=== PATIENT | female | born 1960 | race Caucasian/White ===

== ENCOUNTER 2016-10-24 08:45 | Inpatient (IN) ==
[2016-10-24] MEDS ORDERED: Lidocaine -MPF 1% 2 ML VIAL ID ONE (09:09)
[2016-10-24] MEDS ORDERED: CeFAZolin Pre 2,000 MG/100 ML 2,000 MG/100 ML BAG IVPB ONE (09:09)
[2016-10-24] MEDS ORDERED: Albuterol 2.5 MG/3 ML NEBULIZER IH ONE (09:10)
[2016-10-24] MEDS ORDERED: Plasma-Lyte A (PH 7.4) 1,000 ML IVC SCH (09:15)
--- NOTE | 2016-10-24 09:47 | Anesthesia Evaluation PreOp ---
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 Any Significant HX Other Medical History: Diabetes Type II, GERD Anesthesia History: Past Anesthesia (DANIELLE, Bladder repair, RCR< ganglion cyst) : No Alcohol Use: none Drug use: none Medications and Allergies Lisinopril/Hydrochlorothiazide [Zestoretic 10-12.5 mg Tablet] 1 each PO DAILY [History] Oxycodone HCl/Acetaminophen [Percocet 5-325 mg Tablet] 1 each PO Q4-6H PRN 01/16 [History] Allergies codeine Allergy (Verified 10/23/16 09:45) Hives promethazine [From Phenergan] Allergy (Verified 10/23/16 09:45) Hives - Meds/Allergy Pre-op Review Medications Reviewed: Yes Allergies Reviewed: Yes Beta Blockers on Current Med List: No Anesthesia Results - Labs Laboratory Tests 10/23/16 10/23/16 10/23/16 09:56 09:56 09:56 WBC 7.0 Hgb 15.8 H Hct 46.4 H Plt Count 217 INR 1.0 Sodium 137 Potassium 3.8 Chloride 102 Carbon Dioxide 26 BUN 15 Creatinine 0.73 Anesthesia Exam O2 Sat Height 1.55 m Height 1.55 m Weight 83.915 kg Weight 83.915 kg O2 Sat by Pulse Oximetry 95 Vital Signs Temp Pulse Resp BP Pulse Ox 97.5 F L 69 18 134/75 95 10/24/16 09:14 10/24/16 09:14 10/24/16 09:14 10/24/16 09:14 10/24/16 09:14 - HEENT Pupil (Motor): Pupils equal, EOMI Mallampati: III Teeth: Normal Oral Opening: Greater than 3 - 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
[2016-10-24] MEDS ORDERED: Acetaminophen IV 1,000 MG/100 ML INFUS..BTL IVPB ONE (11:05)
[2016-10-24] MEDS ORDERED: Acetaminophen IV 1,000 MG/100 ML INFUS..BTL ONE (11:06)
--- NOTE | 2016-10-24 13:00 | History & Physical Report ---
Date of Encounter: 10/24/16 Time of Encounter: 12:58 24 Hour HP Update - Instructions Instructions: If the History and Physical is less than 30 days old and was completed prior to A.M. admission and or procedure and has NOT been updated on calendar day of procedure please complete this update prior to performing procedure. - Update Patient reports changes in Medical Condition: No Changes in examination, assessment, or condition: No Changes in Medication: No Preop tests/diagnostics Reviewed: Yes Pre-Op MRSA Screen: Negative Surgery Remains Indicated: Yes Consent for Planned Operative Procedure(s) Verified: Yes - Pre-Operative Checklist Preoperative Checklist Indicated: No Prophylactic Antibiotic Ordered: Yes Home Medications Include Beta Alex: No Beta Alex Taken Today (Day of Surgery): No Beta Alex Taken Yesterday (Day Prior to Surgery): No Is VTE Prophylaxis Indicated?: Yes
[2016-10-24] MEDS ORDERED: *HR* FentaNYL (PF) 100 MCG/2 ML VIAL ONE (14:50)
[2016-10-24] MEDS ORDERED: *HR* Midazolam HCl 2 MG/2 ML VIAL ONE (14:50)
[2016-10-24] MEDS ORDERED: Lidocaine -MPF 2% 2 ML VIAL ONE (14:50)
[2016-10-24] MEDS ORDERED: *HR* Remifentanil 1 MG VIAL IVP ONE (14:50)
[2016-10-24] MEDS ORDERED: *HR* Phenylephrine 10 MG/ML VIAL ONE (14:50)
[2016-10-24] MEDS ORDERED: Propofol 500 MG/50 ML INFUS..BTL ONE ×2 (14:50→16:59)
[2016-10-24] MEDS ORDERED: *HR* Propofol 200 MG/20 ML VIAL IVP ONE (14:50)
[2016-10-24] MEDS ORDERED: *HR* Labetalol 20 MG/4 ML SYRINGE IVP PRN (15:24)
[2016-10-24] MEDS ORDERED: Ondansetron 4 MG/2 ML VIAL IVP PRN ×2 (15:24→17:46)
--- NOTE | 2016-10-24 16:26 | Orthopedic Operative Note ---
Date of procedure: 10/24/16 Pre-op diagnosis: Cervical stenosis, cervical myelopathy Post-op diagnosis: same Operation/Findings: Anterior cervical decompression and fusion C4-C7: The patient was brought to the operating room and placed supine on the operating room table. Successful general endotracheal anesthesia intubation was performed. Neurophysiologic monitoring personnel placed leads on the upper and lower extremities as well as the cranium for EMG monitoring purposes. Appropriate baseline potentials were noted by the neurophysiologic monitoring staff. Tena catheter was placed prior to positioning. Compression boots and contains were placed for deep vein thrombosis prophylaxis. Padding was also placed all bony prominences including the ulnar nerve near the medial epicondyles of the elbows were appropriately padded. Mild traction was placed on the bilateral shoulders and taped into place. Preoperative antibiotics were administered. The area from the mandible bilaterally to the upper thoraces was prepped and draped in the usual sterile fashion. A transverse incision was made at the level of the cricoid cartilage which is approximately 3 cm in length and extended from the midline of the cervical spine laterally towards the sternocleidomastoid muscle on the left. We then performed standard medial approach to the carotid sheath. Sponges were used to tease the fascial medial to the sternocleidomastoid muscle while carefully controlling and palpating the carotid artery. Using careful dissection we were able to get to the level of the anterior vertebral bodies and longus coli muscles. The spinal needle was placed at the appropriate C6-7 level, and intraoperative radiograph was obtained which was a cervical spine lateral radiograph. The needle and radiograph confirmed we were at the correct operative level. We further exposed this level by using Bovie cautery under the medial edge of the longus colli muscles to allow them to be retracted approximately 2 mm laterally on each side. An 11 blade was used to perform anterior discectomy at the appropriate C6-7 level after an initial annulotomy of the anterior longitudinal ligament and annulus was performed. Further disc material was removed with pituitary Rongeurs. Subsequently, Synthes pins were placed at the C6 and C7 vertebral bodies respectively to provide distraction. We then used a Trimline cervical retractor which was placed in both medial and lateral as well as inferior superior direction to allow full visualization of the appropriate disc and vertebral bodies. The Leica microscope was brought to the field and the remainder of the procedure was performed under the guidance of this microscope. Using pituitary rongeurs and small curettes, various micro- instruments, a full discectomy was performed at the appropriate C6-C7 level. The posterior longitudinal ligament was encountered and appeared partially calcified. A portion of this ligament was removed. After complete and thorough discectomy and removal of spondylitic material was performed the endplates of the C6 and C7 vertebral bodies were prepared with a bur until allow bleeding of cancellous bone. A 7mm trial graft was evaluated and appeared to fit quite well within the excised C6-7 disc space. A cortico- cancellous allograft of 7 mm was utilized, carefully tapped into place within the excised disc space with the aid of a bone tamp. It was seated approximately 2 mm from the anterior edge of the cortex of the adjacent vertebral bodies. We then turned our attention to the C5-6 level where a similar series of procedures was performed including discectomy, removal of spondylitic material, end plate preparation, and trial grafting. A 7mm trial fit well within the C5-6 disc space. A 7 mm allograft was then placed at C5-6. We then turned our attention to the C4-5 level where decompression in graft preparation steps were repeated. After removal of the disc and spondylitic material, a 7 mm trial graft fit well within the C4-5 disc space. A cortico- cancellus allograft of 7 mm was then carefully placed at C4-5. A cervical plate was then placed on the anterior aspect of the C4, C5, C6, and C7 vertebral bodies. The plate was placed in the midline position after drilling eight13 mm self tapping screws and inserting them. They were locked in place using standard Venture plate maneuvers. At this point a lateral radiograph of the cervical spine was obtained and showed satisfactory position of the grafts and plate. The wound was copiously irrigated and bleeders encountered were cauterized using Bovie cautery. Platysma was closed with interrupted 2-0 Vicryl sutures. Running 3-0 Monocryl suture was used for skin closure. Sterile dressing was placed over the neck wound. A cervical collar was placed. The patient was transferred to a hospital bed and extubated. The patient was noted to be fully motor and sensory intact in the recovery room at the end of the procedure. The medications. All sponge instrument and needle counts were correct at the end of the procedure. Anesthesia: GETA Surgeon: Remberto Plata Jr Estimated blood loss (cc): 300 Condition: stable Disposition: PACU
[2016-10-24] MEDS: *HR* HYDROmorphone (PF) 1 MG/ML SYRINGE IVP PRN ×4 (16:52→17:16)
[2016-10-24] MEDS ORDERED: Ondansetron 4 MG/2 ML VIAL ONE (16:59)
[2016-10-24] MEDS ORDERED: EPHEDrine 50 MG/ML VIAL ONE (16:59)
[2016-10-24] MEDS ORDERED: Dexamethasone 4 MG/ML VIAL ONE (16:59)
[2016-10-24] MEDS ORDERED: Naloxone 0.4 MG/ML INJ IVP PRN (17:46)
[2016-10-24] MEDS ORDERED: *HR* Morphine 2 MG/ML SYRINGE IVP PRN (17:46)
[2016-10-24] MEDS ORDERED: Ipratropium/Albuterol Neb 3 ML IH PRN (17:46)
[2016-10-24] MEDS ORDERED: Baclofen 10 MG TABLET PO PRN (17:46)
[2016-10-24] MEDS: Ringers Solution, Lactated 1,000 ML IVC SCH (18:18)
[2016-10-24] MEDS: *HR* OxyCODONE Immed Rel 5 MG TABLET PO PRN ×2 (18:19→21:54)
--- NOTE | 2016-10-24 19:08 | Anesthesia Evaluation Post Op ---
Date of Encounter: 10/24/16 Time of Encounter: 19:07 - Vital Signs Vital Signs: Vital Signs/O2 Sat, Most Current Temp Pulse Resp BP Pulse Ox 97.5 F L 80 16 154/78 96 10/24/16 18:52 10/24/16 18:52 10/24/16 18:52 10/24/16 18:52 10/24/16 18:52 - Lungs Lungs: Clear Ascult./Percussion - Airway Airway: Non-obstructed - Cardiovascular Regular Rate - Mental Status Mental Status: Alert & Oriented, Answers Appropriately - Pain Pain Scale: 4 Pain Scale used: Numeric (1 - 10) - Nausea Vomiting Nausea Vomiting: Present - Hydration Hydration: Tolerates oral liquids, Tena catheter Notes: 10/24/16 19:07 Patient with c/o nausea. Will treat with scopolamine patch.
[2016-10-24] MEDS ORDERED: Scopolamine Patch 1.5 MG PATCH.TD72 TD ONE (19:11)
[2016-10-24] MEDS ORDERED: *HR* OxyCODONE Immed Rel 5 MG TABLET PO SCH (20:00)
[2016-10-25] MEDS: *HR* OxyCODONE Immed Rel 5 MG TABLET PO PRN (02:51)
[2016-10-25] MEDS: Ringers Solution, Lactated 1,000 ML IVC SCH (05:22)
[2016-10-25] MEDS ORDERED: Chloraseptic Spray 177 ML BOTTLE MM PRN (05:48)
[2016-10-25 06:23] LABS: Basophils % 0.2 %; Eosinophils % 0.1 %; Hematocrit 42.4 % (35.3-44.9); Lymphocytes # 2.7 K/mcL (0.6-4.6); Lymphocytes % 23.4 %; Mean Corpuscular Hemoglobin 28.6 pg (28.0-33.3); Mean Corpuscular Volume 86.7 fL (83.0-100.0); Mean Platelet Volume 9.2 fL (9.4-12.4); Monocytes # 0.7 K/mcL (0.0-1.3); Monocytes % 5.7 %; Platelet Count 224 K/mcL (140-400); Red Blood Count 4.89 M/mcL (3.82-4.97); Red Cell Distribution Width 12.5 % (11.5-14.5); Segmented Neutrophils % 69.6 %
[2016-10-25 06:31] LABS: BUN/Creatinine Ratio 14 (6-26); Blood Urea Nitrogen 10 mg/dL (7-20); Calcium 9.1 mg/dL (8.6-10.8); Carbon Dioxide 28 mEq/L (19-29); Chloride 100 mEq/L (98-109); Glucose 169 mg/dL (70-99); Osmolality,Calculated 281 (280-300); Potassium 4.3 mEq/L (3.5-4.5); Sodium 134 mEq/L (136-145); eGFR For African Americans > 60 (> 60); eGFR For Non-African Americans > 60 (> 60)
[2016-10-25 08:11] VITALS: BP 159/89
--- NOTE | 2016-10-25 10:23 | Discharge Summary ---
Date of Encounter: 10/25/16 Time of Encounter: 10:20 - Discharge Diagnosis (1) Cervical stenosis of spinal canal Priority: Primary Status: Chronic (2) Cervical radiculopathy Priority: Secondary Status: Chronic - Discharge Medications Prescriptions: OxyCODONE Immed Rel [Roxicodone 5 MG] 5 mg PO Q4HR PRN #60 tab PRN Reason: Severe Pain Home Medications: Oxycodone HCl/Acetaminophen [Percocet 5-325 mg Tablet] 1 tab PO Q8H PRN [History] Baclofen [Lioresal] 10 mg PO BID PRN 10/24/16 [History] Ipratropium/Albuterol Neb [Duoneb] 3 ml IH Q4HR PRN 10/24/16 [History] Lisinopril/Hydrochlorothiazide [Zestoretic 20-25 mg Tablet] 1 tab PO DAILY 10/24 [History] Omeprazole [PriLOSEC] 40 mg PO DAILY 10/24/16 [History] OxyCODONE Immed Rel [Roxicodone 5 MG] 5 mg PO Q4HR PRN #60 tab 10/25/16 [Rx] Allergies/Adverse Reactions: codeine Allergy (Verified 10/23/16 09:45) Hives promethazine [From Phenergan] Allergy (Verified 10/23/16 09:45) Hives Labs on day of discharge: Labs from last 24 hours 10/25/16 10/25/16 10/24/16 06:00 06:00 18:00 WBC 11.5 H D RBC 4.89 Hgb 14.0 D Hct 42.4 MCV 86.7 MCH 28.6 MCHC 33.0 RDW 12.5 Plt Count 224 MPV 9.2 L Immature Gran % 1.0 Seg Neutrophils % 69.6 Lymphocytes % 23.4 Monocytes % 5.7 Eosinophils % 0.1 Basophils % 0.2 Neutrophils # 8.0 Lymphocytes # 2.7 Monocytes # 0.7 Eosinophils # 0.0 Basophils # 0.0 Sodium 134 L Potassium 4.3 Chloride 100 Carbon Dioxide 28 BUN 10 Creatinine 0.70 Est GFR ( Amer) > 60 Est GFR (Non-Af Amer) > 60 BUN/Creatinine Ratio 14 Glucose 169 H POC Glucose 188 H Calculated Osmolality 281 Calcium 9.1 10/24/16 10/24/16 10:59 09:17 WBC RBC Hgb Hct MCV MCH MCHC RDW Plt Count MPV Immature Gran % Seg Neutrophils % Lymphocytes % Monocytes % Eosinophils % Basophils % Neutrophils # Lymphocytes # Monocytes # Eosinophils # Basophils # Sodium Potassium Chloride Carbon Dioxide BUN Creatinine Est GFR ( Amer) Est GFR (Non-Af Amer) BUN/Creatinine Ratio Glucose POC Glucose 150 H 185 H Calculated Osmolality Calcium - Impressions ITS Impressions Cervical Spine X-Ray 10/24/16 00:00 IMPRESSION: Evaluation is severely limited due to patient positioning. Only the postsurgical changes at C4-5 can be evaluated which are grossly unremarkable. D/ / 10/24/2016 17:09:34 Marina Enciso MD / earnold Interpreting Provider: Marina Enciso MD Cervical Spine X-Ray 10/24/16 14:30 IMPRESSION: Marker placement at C4-C5. D/ / 10/24/2016 14:51:55 Wale Betancourt MD / bcarter Interpreting Provider: Wale Betancourt MD Cervical Spine X-Ray 10/25/16 08:27 IMPRESSION: Status post C4-7 ACDF with no acute complication. D/ / Kenton Manrique MD / Kenton Manrique MD Interpreting Provider: Kenton Manrique MD Date of admission: 10/24/16 18:04 Primary care physician: Charlotte Diaz Consults: 10/24/16 17:46 Consult to Occupational Therapy [CONS] Routine Comment: Evaluate, develop and implement POC Reason for Consult: Postoperative Consult to Physical Therapy [CONS] Routine Comment: Evaluate, develop and implement POC Reason for Consult: Postoperative Consult to Spine Navigator [CONS] [CONS] Routine - Patient Status Disposition: Home, Self-Care Condition: Good Functional capacity at discharge: independent ambulation Overall status at discharge: patient is progressing back to baseline - Discharge Instructions Follow Up With: Charlotte Gilbert MD [Primary Care Provider] - - Diet and Activity Activity: as per physical therapy Diet: advance to your usual diet - Hospital Course Hospital course: Ms. Rose is a 56 year old female The patient had an uneventful postoperative course. Progressed from intravenous analgesic needs to oral analgesic needs only. Remained neurovascularly intact and mobilized satisfactorily. All intraoperative and/or postoperative radiographic studies were satisfactory. Patient is discharged with plan for rehabilitation and follow-up in 2 weeks post discharge on analgesic medication and patient's home medications. - Time Spent with Patient Total time spent providing and/or coordinating discharge services: - VTE Documentation of Mechanical Device: Intermittent pneumatic compression device
[2016-10-25] MEDS ORDERED: ceFAZolin 2,000 MG in D5% in Water 100 ML IVPB SCH (22:00)
== END 2016-10-25 12:15 | disposition home or self-care (01) | DRG 472 ==
LOC: SAMDAY 08:45 → 3NENU 18:04
PROVIDERS: ADMIT Orthopaedic Surgery Orthopaedic Surgery of the Spine; ATTEND Orthopaedic Surgery Orthopaedic Surgery of the Spine